=== PATIENT | female | born 1955 | race Caucasian/White ===

== ENCOUNTER 2021-08-27 09:36 | Day surgery (SDC) | payer OTHER ==
[~2021-08-27] VITALS: Ht 167.6 cm; Wt 83.9 kg
[2021-08-27] MEDS ORDERED: HYDROmorphone 1 MG/ML AMP IVP PRN ×2 (12:35→13:45)
[2021-08-27] MEDS ORDERED: ONDANSETRON 4 MG/2 ML VIAL IVP PRN (12:35)
[2021-08-27] MEDS ORDERED: DEXAMETHASONE 4 MG/ML VIAL ONE (12:36)
[2021-08-27] MEDS ORDERED: PROPOFOL 200 MG/20 ML VIAL IV ONE (12:36)
[2021-08-27] MEDS ORDERED: KETOROLAC 30 MG/ML VIAL ONE (12:36)
[2021-08-27] MEDS ORDERED: ONDANSETRON 4 MG/2 ML VIAL ONE (12:36)
[2021-08-27] MEDS ORDERED: ROCURONIUM 50 MG/5 ML VIAL IV ONE (12:36)
[2021-08-27] MEDS ORDERED: SUCCINYLCHOLINE CHLORIDE 200 MG/10 ML VIAL IVP ONE (12:36)
[2021-08-27] MEDS ORDERED: BUPIVACAINE-MPF 0.25% 30 ML VIAL INJ ONE (12:38)
[2021-08-27] MEDS ORDERED: LIDOCAINE/EPI MPF 1%1:200000 30 ML VIAL INJ ONE (12:38)
[2021-08-27] MEDS ORDERED: DESFLURANE 240 ML BTL INH ONE (12:40)
[2021-08-27] MEDS ORDERED: fentaNYL citrate 0.05 MG/ML VIAL ONE (12:49)
[2021-08-27] MEDS ORDERED: HYDROmorphone PFS 2 MG/ML SYR ONE ×2 (13:00→14:11)
[2021-08-27] MEDS ORDERED: SUGAMMADEX SODIUM 200 MG/2 ML VIAL IV ONE (13:38)
[2021-08-27] MEDS ORDERED: ONDANSETRON 4 MG/2 ML VIAL IV PRN (13:45)
[2021-08-27] MEDS ORDERED: ACET-8386 PO (13:45)
[2021-08-27] MEDS ORDERED: HYDROcodone/APAP 5/325 MG 1 TAB TAB PO PRN (13:45)
[2021-08-27] MEDS ORDERED: MORPHINE SULFATE 2 MG/ML SYR IVP PRN (13:45)
[2021-08-27] MEDS ORDERED: MORPHINE SULFATE 4 MG/ML SYR IV PRN (13:45)
== END 2021-08-27 16:50 | disposition home or self-care (01) ==
LOC: MDS 09:36 → MMU 09:36 → MDS 16:50
PROVIDERS: ATTEND Surgery
DX: K80.10 Calculus of gallbladder with chronic cholecystitis without obstruction (principal); I10 Essential (primary) hypertension; E11.9 Type 2 diabetes mellitus without complications; Z79.899 Other long term (current) drug therapy; Z20.822 Contact with and (suspected) exposure to COVID-19
CPT/HCPCS: 47562; 71045; 87426; 93005; J0330; J0690; J1100; J1170; J1885; J2001; J2405; J2704; J3010; J3490; J7060; 82374; 88304; J7030; J7120